=== PATIENT | female | born 1940 ===

== ENCOUNTER 2023-12-15 07:11 | Outpatient (CLI) | payer OTHER | END 2023-12-15 07:19 | disposition home or self-care (01) | LOC: TOM 07:11 | DX: K57.30 Diverticulosis of large intestine without perforation or abscess without bleeding (principal); R19.5 Other fecal abnormalities; D12.6 Benign neoplasm of colon, unspecified; K66.0 Peritoneal adhesions (postprocedural) (postinfection) ==